=== PATIENT | male | born 1935 | race Caucasian/White ===

== ENCOUNTER 2018-06-19 11:16 | Inpatient (IN) | payer MEDICARE, BC ==
[~2018-06-19] VITALS: Ht 167.6 cm; Wt 72.6 kg
--- NOTE | 2018-06-19 11:25 | NUR ---
EMS and patient unable to provide information about current home medications.
[2018-06-19] MEDS ORDERED: IV NORMAL SALINE 1000 ML BAG IV ONE (11:30)
[2018-06-19 11:40] LABS: BASOPHILS # (AUTO) 0.1 K/uL (0.0-8.0); EOSINOPHILS # (AUTO) 0.2 K/uL (0.0-0.7); EOSINOPHILS % (AUTO) 3.9 % (0.0-7.0); HEMATOCRIT 42.7 % (36.7-47.1); HEMOGLOBIN 14.4 g/dL (12.5-16.3); LYMPHOCYTES # (AUTO) 1.8 K/uL (20.0-40.0); LYMPHOCYTES % (AUTO) 29.4 % (20.5-51.5); MEAN CORPUSCULAR HEMOGLOBIN 33.2 uug (23.8-33.4); MEAN CORPUSCULAR HGB CONC 34 g/dL (32.5-36.3); MEAN CORPUSCULAR VOLUME 98.6 fL (73.0-96.2); MONOCYTES # (AUTO) 0.7 K/uL (2.0-10.0); MONOCYTES % (AUTO) 11.8 % (0.0-11.0); NEUTROPHILS # (AUTO) 3.2 K/uL (1.8-8.9); NEUTROPHILS % (AUTO) 53.9 % (38.5-71.5); PLATELET COUNT (AUTO) 144 K/uL (152-348); RED BLOOD CELL COUNT(AUTO) 4.33 MIL/uL (4.06-5.63)
[2018-06-19 11:48] LABS: CARBON DIOXIDE 28 mmol/L (21-32); CHLORIDE 104 mmol/L (98-107); CREATININE 1.2 mg/dL (0.6-1.3); ETHANOL < 3 MG/DL (0-0); GLUCOSE 128 mg/dL (74-106); POTASSIUM 3.7 mmol/L (3.5-5.1); UREA NITROGEN, BLOOD 15 mg/dL (7-18)
[2018-06-19 11:53] LABS: ALANINE AMINOTRANSFERASE 27 U/L (16-63); ALKALINE PHOSPHATASE 50 U/L (50-136); ASPARTATE AMINOTRANSFERASE 22 U/L (15-37); BILIRUBIN,DIRECT 0.2 mg/dL (0.0-0.2); BILIRUBIN,TOTAL 0.9 mg/dL (0.2-1.0); TOTAL PROTEIN, SERUM 7.8 g/dL (6.4-8.2)
--- NOTE | 2018-06-19 11:57 | NUR ---
Patient's family members are now at bedside.
[2018-06-19 12:12] LABS: THYROID STIMULATING HORMONE 7.265 mIU/mL (0.358-3.740)
[2018-06-19] MEDS ORDERED: ROSU10TA2 PO (12:32)
[2018-06-19] MEDS ORDERED: MEMA28CA PO (12:32)
[2018-06-19] MEDS ORDERED: ERGO2000 PO (12:32)
[2018-06-19] MEDS ORDERED: LEVO125T8 PO (12:32)
--- NOTE | 2018-06-19 12:48 | NUR ---
Adult's son said that he will come back with information re: neurologist
--- NOTE | 2018-06-19 13:51 | NUR ---
[place] speaking to on-call Neuro-Surgeon at [facility].
[2018-06-19 14:29] LABS: *BILIRUBIN,URIN NEGATIVE (NEGATIVE); *BLOOD, URINE NEGATIVE (NEGATIVE); *CLARITY,URINE CLEAR (CLEAR); *COLOR,URINE YELLOW (YELLOW); *KETONES,URINE NEGATIVE (NEGATIVE); *UROBILINOGEN,URINE 0.2 E.U./dl (NORMAL); LEUKOCYTE ESTERASE ,URINE NEGATIVE (NEGATIVE); NITRITE, URINE NEGATIVE (NEGATIVE); PH,URINE 7.5 (5.0-8.0); UGLUCOSE NEGATIVE (NEGATIVE)
[2018-06-19 14:40] LABS: MUCUS,URINE FEW /LPF (0-FEW); RBC,URINE 0-3 /HPF (0-3); WBC,URINE 0-3 /HPF (0-3)
[2018-06-19 15:39] LABS: *AMPHETAMINE, URINE NEGATIVE (NEGATIVE); *BARBITURATE, URINE NEGATIVE (NEGATIVE); *CANNABINOID, URINE NEGATIVE (NEGATIVE); *COCCAINE, URINE NEGATIVE (NEGATIVE); *OPIATE, URINE NEGATIVE (NEGATIVE); *PHENCYCLIDINE SCREEN,URINE NEGATIVE (NEGATIVE)
--- NOTE | 2018-06-19 15:45 | NUR ---
RECEIVED PATIENT FROM ER, ORIENTED TO UNIT, EKG PERFORMED, MEDICATIONS RECONCILED AND MANAGER GYN PLACED ON PATIENT. NO DISTRESS NOTED AT THIS TIME, FAMILY AT BEDSIDE.
[2018-06-19 16:00] VITALS: BP 131/72
[2018-06-19] MEDS ORDERED: MAGNESIUM HYDROXIDE 30 ML LIQUID UDC PO PRN (16:00)
[2018-06-19] MEDS ORDERED: ACETAMINOPHEN 325 MG TABLET PO PRN (16:00)
[2018-06-19] MEDS ORDERED: ZOLPIDEM 5 MG TABLET PO PRN (16:00)
[2018-06-19] MEDS ORDERED: HYDROCODONE/APAP 5-325MG TABLET PO PRN (16:00)
[2018-06-19] MEDS ORDERED: ONDANSETRON 4 MG/2 ML VIAL IV PRN (16:00)
[2018-06-19] MEDS: IV NS 1000 ML 1,000 ML IV PRN (17:04)
[2018-06-19 20:17] VITALS: BP 121/65
[2018-06-19] MEDS: MEMANTINE HCL 5 MG TABLET PO SCH (20:22)
[2018-06-19] MEDS ORDERED: ATORVASTATIN 20 MG TABLET PO SCH (21:00)
--- NOTE | 2018-06-19 21:00 | NUR ---
Received patient awake alert but forgetful, no SOB denies chest pain, vital signs WNL. Sinus rhythm on Tele. Multiple family in room.
[2018-06-20] VITALS (7 sets, daily range): BP systolic 109–157; BP diastolic 66–80
--- NOTE | 2018-06-20 | NUR ---
Patient still awake requesting coffee. Instructed he will get it in AM. Noted infiltrated IV on left AC. Inserted new IV line on right forearm w/ [id number]. IVF maintained.
--- NOTE | 2018-06-20 06:00 | NUR ---
Patient didn't sleep throughout the night, attempted to jump out of bed multiple times. Fall precaution observed. Vital signs WNL, sinus rhythm on Tele.
[2018-06-20] MEDS: IV NS 1000 ML 1,000 ML IV PRN (06:28)
[2018-06-20 06:32] LABS: BASOPHILS % (AUTO) 0.5 % (0.0-2.0); EOSINOPHILS # (AUTO) 0.2 K/uL (0.0-0.7); EOSINOPHILS % (AUTO) 3.1 % (0.0-7.0); HEMATOCRIT 38.7 % (36.7-47.1); HEMOGLOBIN 13.3 g/dL (12.5-16.3); LYMPHOCYTES # (AUTO) 1.8 K/uL (20.0-40.0); LYMPHOCYTES % (AUTO) 24.8 % (20.5-51.5); MEAN CORPUSCULAR HEMOGLOBIN 33.9 uug (23.8-33.4); MEAN CORPUSCULAR HGB CONC 34 g/dL (32.5-36.3); MEAN CORPUSCULAR VOLUME 98.5 fL (73.0-96.2); MONOCYTES # (AUTO) 0.8 K/uL (2.0-10.0); MONOCYTES % (AUTO) 10.4 % (0.0-11.0); NEUTROPHILS # (AUTO) 4.5 K/uL (1.8-8.9); NEUTROPHILS % (AUTO) 61.2 % (38.5-71.5); PLATELET COUNT (AUTO) 151 K/uL (152-348); RED BLOOD CELL COUNT(AUTO) 3.92 MIL/uL (4.06-5.63); WHITE BLOOD COUNT (AUTO) 7.3 K/uL (3.6-10.2)
[2018-06-20 06:46] LABS: THYROID STIMULATING HORMONE 4.326 mIU/mL (0.358-3.740)
[2018-06-20 06:49] LABS: CARBON DIOXIDE 26 mmol/L (21-32); CHLORIDE 110 mmol/L (98-107); CHOLESTEROL 139 mg/dL (<200); GLUCOSE 83 mg/dL (74-106); HDL CHOLESTEROL 52 mg/dL (40-60); MAGNESIUM 2.1 mg/dL (1.8-2.4); PHOSPHOROUS 3.1 mg/dL (2.5-4.9); POTASSIUM 4.1 mmol/L (3.5-5.1); TRIGLYCERIDES 75 MG/DL (30-150); UREA NITROGEN, BLOOD 11 mg/dL (7-18)
[2018-06-20] MEDS ORDERED: LEVOTHYROXINE SODIUM 125 MCG TABLET PO SCH (07:00)
--- NOTE | 2018-06-20 08:00 | NUR ---
AWAKE ALERT BUT WITH PERIODS OF CONFUSION AND DISORIENTATION DUE TO HISTORY OF DEMENTIA
[2018-06-20] MEDS: MEMANTINE HCL 5 MG TABLET PO SCH (08:47)
[2018-06-20] MEDS ORDERED: CHOLECALCIFEROL 1,000 UNIT TABLET PO SCH (09:00)
--- NOTE | 2018-06-20 12:45 | NUR ---
SEEN BY DR ORELLANA AND NEUROLOGIST AND BOTH AGREED FOR DISCHARGE.
--- NOTE | 2018-06-20 13:00 | NUR ---
LEARNING SUPPORT TEACHER AWARE OF DISCHARGE ORDER SPOKED WITH PATIENT AND FAMILY
[2018-06-20] MEDS ORDERED: LEVETIRACETAM 500 MG TABLET PO SCH (13:30)
--- NOTE | 2018-06-20 14:15 | NUR ---
DISCHARGED HOME STABLE ACCOMPANIED BY WITH MEDS AND FOLLOW-UP INSTRUCTION.
== END 2018-06-20 14:30 | disposition home or self-care (01) | DRG 312 ==
LOC: ER 11:16 → TELE3 14:54 → MEDSURG3 06-20 13:10
DX: I95.1 Orthostatic hypotension (principal); Q04.0 Congenital malformations of corpus callosum; G91.2 (Idiopathic) normal pressure hydrocephalus; J98.11 Atelectasis; R41.0 Disorientation, unspecified; Z87.891 Personal history of nicotine dependence; Z79.899 Other long term (current) drug therapy; F03.90 Unspecified dementia, unspecified severity, without behavioral disturbance, psychotic disturbance, mood disturbance, and anxiety; I10 Essential (primary) hypertension; I67.2 Cerebral atherosclerosis; E03.9 Hypothyroidism, unspecified; Z79.890 Hormone replacement therapy; E78.5 Hyperlipidemia, unspecified
CPT/HCPCS: 36415; 70030-TC; 70450; 71045; 80307; 83605; 83735; 84100; 84443; 85025; 85730; 93005; 93307; 93880; 97116; 97530; 97535; A4663; G0378; G0480